=== PATIENT | male | born 1955 | race Caucasian/White ===

== ENCOUNTER → 2020-10-09 | Outpatient (CLI) | payer BC ==
[~2020-10-09] MED LIST: AZEL1SPR3; ESOM40CA35; FINA5TAB2; LISI-898 PO; MONT10TA10; MUCI600T31 PO; ROSU5TAB5; TAMS1CAP17
--- NOTE | 2020-10-09 18:45 | ECGEPIP ---
[facility] Test Date: 2020-10-09 Pat Name: DELFINO PEARSON Department: Room: - Gender: Male Implementation Director: LESLY : 1955 Requested By: RULA Burns Order Number: [id number] Reading MD: Rubén Bernabe Measurements Intervals [place] Rate: 81 P: 27 UT: 158 QRS: -46 QRSD: 106 T: -18 QT: 368 QTc: 427 Interpretive Statements Normal sinus rhythm Left anterior fascicular block Possible Anterior infarct , age undetermined Nonspecific T wave abnormality Comparison tracing not on file Electronically Signed on 10-09-2020 18:45:50 EDT by Rubén Bernabe
== END ==
LOC: M EKG 10:47
PROVIDERS: ATTEND Anesthesiology
DX: Z01.810 Encounter for preprocedural cardiovascular examination (principal); G47.33 Obstructive sleep apnea (adult) (pediatric); I10 Essential (primary) hypertension

== ENCOUNTER → 2020-10-09 | Outpatient (CLI) | LOC: M LABSMTC 10:28 → EDUNIT# 11:00 | PROVIDERS: ATTEND Anesthesiology | DX: Z11.52 Encounter for screening for COVID-19 (principal) ==

== ENCOUNTER 2020-10-14 10:32 | Day surgery (SDC) | payer BC ==
[~2020-10-14] VITALS: Ht 177.8 cm; Wt 98.9 kg
[2020-10-14] MEDS ORDERED: fentaNYL 100 MCG/2 ML INJECTION (J3010) As Ordered ONE ×2 (12:55→15:52)
[2020-10-14] MEDS ORDERED: MIDAZOLAM INJ 2MG/2ML VIAL (J2250 PER 1MG) As Ordered ONE (12:55)
[2020-10-14] MEDS ORDERED: SUGAMMADEX SODIUM 500 MG/5 ML VIAL (BRIDION) As Ordered ONE (12:56)
[2020-10-14] MEDS ORDERED: ONDANSETRON 4MG/2ML VIAL As Ordered ONE (12:56)
[2020-10-14] MEDS ORDERED: LIDOCAINE 2% 100MG/5ML SDV (FOR ANES.) As Ordered ONE ×2 (12:56→14:31)
[2020-10-14] MEDS ORDERED: dexameTHASONE 4 MG/ML 1ML VIAL (J1100 PER 1MG) As Ordered ONE (12:56)
[2020-10-14] MEDS ORDERED: propofoL 200 MG/20 ML VIAL As Ordered ONE (12:56)
[2020-10-14] MEDS ORDERED: ROCURONIUM BROMIDE 50 MG/5 ML VIAL As Ordered ONE (12:56)
[2020-10-14] MEDS ORDERED: LIDOCAINE W/EPINEPHRINE 1% 20ML VIAL As Ordered ONE (13:55)
[2020-10-14] MEDS ORDERED: EPINEPHrine 1MG/ML INJ 30ML MD-VIAL As Ordered ONE (13:55)
[2020-10-14] MEDS ORDERED: SODIUM CHLORIDE 0.9% NASAL GEL 15GM (AYR) As Ordered ONE (13:55)
[2020-10-14] MEDS ORDERED: METHYLENE BLUE 0.5% (5MG/ML) 10 ML AMP (PROVAYBLUE) As Ordered ONE (13:55)
[2020-10-14] MEDS ORDERED: ACETAMINOPHEN 1000MG 100ML IV BTL (OFIRMEV) (J0131 PER 10MG) As Ordered ONE (14:24)
[2020-10-14] MEDS: fentaNYL 100 MCG/2 ML INJECTION (J3010) IV PRN ×4 (16:01→16:16)
[2020-10-14] MEDS ORDERED: METOCLOPRAMIDE INJ 10MG/2ML VIAL (J2765 PER 1) IV PRN (16:20)
[2020-10-14] MEDS ORDERED: AUGMENTIN 875 MG TAB PO ONE (16:20)
[2020-10-14] MEDS ORDERED: PERCOCET 5MG/325MG TAB PO PRN (16:20)
[2020-10-14] MEDS ORDERED: ONDANSETRON 4MG/2ML VIAL IV PRN (16:20)
[2020-10-14] MEDS ORDERED: LR 1,000 ML IV SCH ×2 (16:20)
[2020-10-14 18:00] VITALS: BP 136/82
--- NOTE | 2020-10-20 11:09 | RO ---
OPERATIVE NOTE DATE OF OPERATION: 10/14/2020 PREOPERATIVE DIAGNOSIS: Deviated nasal septum and hypertrophy of the inferior nasal turbinates. POSTOPERATIVE DIAGNOSIS: Deviated nasal septum and hypertrophy of the inferior nasal turbinates. PROCEDURES PERFORMED: 1. Septoplasty. 2. Coblation of the left and right inferior nasal turbinates. SURGEON: Justus Blackburn MD. WINDOW ASSEMBLER: ANESTHESIA: General. CLINICAL PREAMBLE: This 65-year-old man presented to the office with history of significant nasal trauma earlier in his life resulting in chronic nasal congestion, worse on the right-sided nasal cavity. The patient has the presence of significant deviated nasal septum to the right side as well as significant spur of the nasal septum. The hypertrophy of the inferior nasal turbinates was also noted. Management options including surgery listed above have been discussed. The patient understood and consented to the procedure. OR NARRATION: Patient was identified in preop holding and brought to the operating room in stable condition. In the supine position on the operating table, the patient received general anesthesia followed by orotracheal intubation without incident. Patient was prepped and draped in the usual fashion for the procedure. Both sides of the nasal cavity were padded using pledgets of 100,000 epinephrine. After a waiting period, the pledgets were removed. The L-strut of the nasal dorsum was palpated and found to be intact. Both sides of the nasal septum were infiltrated with 1% lidocaine with 1:100,000 epinephrine. Left hemitransfixion incision was made. Mucoperichondrial and mucoperiosteal flap was developed on the left side of the nasal septum. Bony cartilaginous junction was identified and disarticulated. Deviated portion of the perpendicular plate and vomer bone were then resected using the cutting Henrik-Leger forceps. The deviated portion of the nasal septum which was also found to be quite calcified were isolated and resected as well. The bony spur of the nasal septum was also isolated and resected as well. At this time, the nasal septum had returned to a midline position. The left hemitransfixion incision was then closed using 3-0 chromic. At this time, attention was then turned to coblation of the nasal turbinates. The anterior surface of the left and right inferior nasal turbinates were infiltrated with 1% lidocaine with 1:100,000 epinephrine. A stab incision was made over the anterior surface of the right inferior nasal turbinate. Using the Reflex coblation wand set at 4 for coblation, three passes were made along the submucosal plane of the right inferior nasal turbinate. The same procedure was then carried out to coblate the left inferior nasal turbinate in its submucosal plane was well. Both of the inferior nasal turbinates were then outfractured using Preston elevator. At this time, the Chavez splints were placed into each side of the nasal cavity and secured anteriorly using 3-0 nylon. At the end of the procedure, sponge and instrument counts were correct. No complications were encountered. Estimated blood loss was approximately 50 mL. General anesthesia was reversed, and the patient was extubated and brought to the recovery room in stable condition.
== END 2020-10-14 18:15 | disposition home or self-care (01) ==
LOC: M SDC 10:32
PROVIDERS: ATTEND Otolaryngology
DX: J34.2 Deviated nasal septum (principal); J34.3 Hypertrophy of nasal turbinates; I10 Essential (primary) hypertension; K21.9 Gastro-esophageal reflux disease without esophagitis; E78.00 Pure hypercholesterolemia, unspecified; J30.9 Allergic rhinitis, unspecified; G47.30 Sleep apnea, unspecified; R06.83 Snoring; N40.0 Benign prostatic hyperplasia without lower urinary tract symptoms; Z79.899 Other long term (current) drug therapy
CPT/HCPCS: 30520; 30801; 88300; J0131; J1100; J2250; J2405; J3010